=== PATIENT | male | born 1995 | race Caucasian/White ===

== ENCOUNTER 2016-05-29 15:28 | Emergency (ER) | payer OTHER ==
--- NOTE | 2016-05-29 16:09 | UCPHY ---
H & P Time Seen by Provider: 05/29/16 15:58 Patient Type: Established HPI/ROS: This patient has facial pressure and a cough. His cough is causing more wheezing and the wheezing resolved with albuterol but he is running low on his albuterol. Has a history of mild asthma and reports that he typically gets sick with what starts is a cold and then turns to bronchitis. He has associated mild ear pressure bilaterally. He reports some fevers and mild fatigue associated with the symptoms. Symptoms been present for 1 week. He feels that the frequency of his cough in severity of the cough is worsening. ROS: No high fevers or chills. No other constitutional symptoms besides what is noted in HPI. HEENT: He reports tearing from his eyes but denies any redness, discharge or pain. No change in vision. Pulmonary: No pleuritic pain. No respiratory distress. Cardiovascular: No leg swelling. GI: No vomiting 7 point ROS is otherwise negative. Past Medical/Surgical History: Mild asthma Coarctation of the aorta Frequent bronchitis Smoking Status: Never smoked Physical Exam: Physical Exam Vital signs are normal. General: No acute distress HEENT: Nose: Clear discharge bilaterally. No sinus tenderness to percussion. Ears: External canals and tympanic membranes are clear with no erythema or abnormal findings bilaterally. Oropharynx: No erythema or exudates. No dysphonia. No drooling or stridor. Eyes: Pupils equal and react to light. Extraocular motions are intact. Lungs: Mild expiratory wheeze bilaterally. No rales or rhonchi appreciated. No increased work of breathing. Cardiac: Regular rate and rhythm with no murmur gallop or rub Skin: No rash or pallor. Neuro: Alert with no focal deficits noted. Initial differential diagnosis: URI with cough and asthma, bronchitis with asthma, sinusitis with asthma Constitutional: Initial Vital Signs Temperature (C) 36.6 C 05/29/16 15:36 Heart Rate 71 05/29/16 15:36 Respiratory Rate 18 05/29/16 15:36 Blood Pressure 147/57 H 05/29/16 15:36 O2 Sat (%) 97 05/29/16 15:36 O2 Delivery Mode Room Air Allergies/Adverse Reactions: penicillin V Allergy (Verified 08/28/15 17:20) Sulfa (Sulfonamide Antibiotics) Allergy (Verified 08/28/15 17:20) Home Medications: Medication Instructions Recorded Albuterol 05/29/16 Albuterol Hfa Anes Only [Proair 2 puffs IH Q4 PRN #1 mdi 05/29/16 Hfa Icu (*)] Azithromycin [Zithromax] 250 mg PO DAILY #6 tab 05/29/16 Fluticasone Hfa 220 Mcg [Flovent 2 puffs IH DAILY #1 mdi 05/29/16 220 MCG Hfa MDI (*)] MDM/Departure - [facility] ED Course/Re-evaluation: Patient appears clinically well here without increased work of breathing but given his background history of court tissue of the aorta an asthma will cover him with macrolide antibiotic for this asthmatic bronchitis. I counseled his mother regarding this. - Depart Disposition: Home, Routine, Self-Care Clinical Impression: Asthmatic bronchitis Qualifiers: Asthma severity: moderate persistent Asthma complication type: with acute exacerbation Qualified Code(s): J45.41 - Moderate persistent asthma with (acute ) exacerbation Condition: Good Instructions: Asthma (ED), Acute Bronchitis (ED) Additional Instructions: Diagnosis: Asthmatic bronchitis Plan: Humidifier Flovent steroid inhaler for 10 days Albuterol inhaler with spacer for cough, wheeze or shortness of breath Zithromax antibiotic Return for any significant worsening despite the treatment Prescriptions: Albuterol Hfa Anes Only [Proair Hfa Icu (*)] 2 puffs IH Q4 PRN #1 mdi PRN Reason: Wheezing Azithromycin [Zithromax] 250 mg PO DAILY #6 tab Fluticasone Hfa 220 Mcg [Flovent 220 MCG Hfa MDI (*)] 2 puffs IH DAILY #1 mdi Referrals: Nitish Kay MD [Primary Care Provider] - As per Instructions - PQRS PQRS Measurement: NA
[2016-05-29 16:20] VITALS: BP 139/61; PULSE 69; RESP 16; TEMP 97.9; O2SAT 96
== END 2016-05-29 16:13 | disposition home or self-care (01) ==
LOC: CED 15:28
DX: J45.41 Moderate persistent asthma with (acute) exacerbation (principal)
CPT/HCPCS: 99214-PO; G0463-PO

== ENCOUNTER → 2016-10-08 | Outpatient (CLI) | payer OTHER ==
[~2016-10-08] MED LIST: IOPAMIDOL (ISOVUE-300) 100 ML BTL ONE
== END ==
LOC: CIMAGING 09:55
PROVIDERS: ATTEND Internal Medicine
DX: R16.1 Splenomegaly, not elsewhere classified (principal)
CPT/HCPCS: 74177-PO; Q9967